=== PATIENT | male | born 1950 | race Caucasian/White ===

== ENCOUNTER 2019-05-23 05:43 | Emergency (ER) | payer BC, MEDICARE ==
[~2019-05-23] VITALS: Ht 185.4 cm; Wt 129.3 kg
[2019-05-23] MEDS ORDERED: FLECAINIDE ACET50 MG PO (05:51)
[2019-05-23] MEDS ORDERED: ASPIRIN325 MG PO (05:52)
== END 2019-05-23 06:45 | disposition home or self-care (01) ==
LOC: ED 05:43
DX: R53.83 Other fatigue (principal); R03.0 Elevated blood-pressure reading, without diagnosis of hypertension; Z88.0 Allergy status to penicillin; Z79.899 Other long term (current) drug therapy; Z79.82 Long term (current) use of aspirin
CPT/HCPCS: 99284

== ENCOUNTER 2021-04-30 10:09 | Inpatient (IN) | payer MEDICARE ==
[~2021-04-30] VITALS: Ht 185.4 cm; Wt 125.3 kg
[~2021-04-30 10:09] MED LIST: ASPIRIN325 MG PO; FLECAINIDE ACET50 MG PO
[2021-04-30] MEDS ORDERED: FLECAINIDE ACE150 MG PO (13:08)
--- NOTE | 2021-04-30 15:19 | NUR ---
PT PLACED ON 8L HIGH FLOW OXYGEN N.C., HE IS SITTING UP EATING REGULAR DIET. HE IS ALERT AND ORIENTED. NOTIFIED OF ADMISSION V/S
[2021-04-30] MEDS ORDERED: MULTI VITAMIN1 EACH PO (15:32)
--- NOTE | 2021-04-30 15:32 | NUR ---
MED REC COMPLETE
--- NOTE | 2021-04-30 15:46 | NUR ---
PT SITTING UP IN BED ALERT AND ORIENTED, CONSUMED 100% OF LUNCH. NOW SITTING UP VISITING.
--- NOTE | 2021-04-30 16:16 | EKG ---
[facility] [address] [facility] [place] [id number] Signed Wide QRS tachycardia with premature supraventricular complexes Left axis deviation Left bundle branch block Abnormal ECG No previous ECGs available Confirmed by ANNA CARLTON MD ([id number]) on 04/30/2021 4:16:19 PM Electronically Signed By: ANNA CARLTON MD 04/30/21 1616 PATIENT NAME: AMBER CID ANALI Electrocardiogram DATE OF : 48 PHYSICIAN: ANNA CARLTON MD REPORT #: [id number] REPORT IS CONFIDENTIAL AND NOT TO BE RELEASED WITHOUT AUTHORIZATION
--- NOTE | 2021-04-30 17:07 | NUR ---
Patient is resting on right side in bed with his call light in reach. Patient is sweaty and RN was notified. BSC, 2PA.
--- NOTE | 2021-04-30 18:36 | NUR ---
PT ADMITTED FROM ED THIS AFTERNOON 1454, HE HAS BEEN DROWSY, HARD TO WAKE. HE IS ON HIGH FLOW OXYGEN 7L. HE ARRIVED ON 7L OXYMASK. HE HAS GOOD APPETITE, HAD DIARRHEA ONCE SINCE ADMISSION, NO NAUSEA. HAS INTERMITTEN FEVER. ONE PERSON TO BEDSIDE COMMODE. DR. CARLTON NOTIFIED OF TACHYCARDIA UP TO 120-130 BPM , THEN BACK TO 110 BPM
--- NOTE | 2021-04-30 22:13 | NUR ---
IN TO GET VITALS, BOOKER EMPTIED, RN AWARE OF LOWER BP, NO FURTHER NEEDS AT THIS TIME
--- NOTE | 2021-04-30 22:51 | NUR ---
IN TO REPLACE TELE LEADS, AND BATTERY, RN COMING TO THE RO ASSESS PTs O2
--- NOTE | 2021-04-30 23:02 | NUR ---
PT SPO2 84% ON 7L HIGH FLOW NC. PT MOVED TO 9L, SPO2 91%. PT GIVEN EDUCATION ON PRONING. PT STATES HE CAN'T PRONE BUT CAN LAY ON HIS SIDE. PT ON CPAP AT HOME BUT DID NOT BRING IT. RT CALLED TO PROVIDED CPAP.
--- NOTE | 2021-05-01 00:28 | NUR ---
PT RESTING IN BED ON HIS RIGHT SIDE. CPAP ON, CPOX 92%. HR AFIB @ 111. CALL LIGHT IN REACH.
--- NOTE | 2021-05-01 02:00 | NUR ---
IN TO ASSIST RN WITH VITALS, WARM BLANKETS PROVIDED, FIXED TELE RL LEAD, PT WILL CALL US LATER WHEN HES READY TO GET UP TO VOID, NO FURTHER NEEDS AT THIS TIME
--- NOTE | 2021-05-01 02:22 | NUR ---
ASSESSMENT COMPLETED. CPOX 98% ON 8L CPAP. LUNGS CLEAR IN UPPER LOBES AND COURSE IN LOWER LOBES. HEART TONES REGULAR, TELE HR SR @ 60. IV WNL. CMS INTACT. ABD SOFT, NONTENDER, BOWEL TONES ACTIVE. PT HAS OCCASSIONAL NONPRODUCTIVE COUGH. PT IS DUE TO VOID, DECLINES TO USE BR AT THIS TIME. NO OTHER NEEDS AT THIS TIME. CALL LIGHT IN REACH.
--- NOTE | 2021-05-01 07:36 | NUR ---
PT ALERT ON CPAP, GAVE ORDER FOR BREAKFAST. NO DISTRESS NOTED, NO OHTER REQUESTS AT THIS TIME.
--- NOTE | 2021-05-01 08:42 | NUR ---
PT SITTING UP IN BED EATING BREAKFAST. HE IS COUGH INTERMITTEN AFTER NEB TREATMENT. HE IS NOW ON HIGH FLOW N.C. 7L. HE IS ALERT AND ORIENTED. ASSESSMENT AND MEDS PASSED.
--- NOTE | 2021-05-01 09:09 | NUR ---
Patient is requesting tooth brustles not tooth picks. RN will be notified. Vitals, I&Os are recorded. Resperations were 30, RN will be notified and patient would like a shower with a shower chair sometime today. Call light is in reach and the last request is more ice water. I will go get that.
--- NOTE | 2021-05-01 09:54 | NUR ---
PT AGREES TO TAKE SHOWER AND SIT UP IN RECLINER TODAY, HE HAS A SEVERE COUGH AFTER NEB THIS AM AND BREAKFAST. TESSLON PHILLIP GIVEN PRN WILL MONITOR. HE HAS CONSUMED 90% OF BREAKFAST.
--- NOTE | 2021-05-01 11:08 | NUR ---
ASSISTED PT UP TO BARTHROOM FOR LOOSE BM AND VOID. PT THEN SHOWERED WITH STAND BY ASSISTANCE OF NURSE. DR CARLTON IN TO ROUND ON PT. OXYGEN PLACED AT 10 NC FOR SHOWER. PT TOLERATED WELL WITH SATURATIONS AT 97%. ONCE IN CHAIR AFTER SHOWER TITRATED OXYGEN TO 7L NC. OXYGEN SATURATION 94% CALL LIGHT AND PERSONAL ITEMS WITHIN REACH. .
--- NOTE | 2021-05-01 11:45 | NUR ---
Spoke orbbie Bowman by phone. He states he lives in [place] with his in a 2 story home. He does not use the basement. He uses a CPAP at with 02. He is unsure how much 02 he uses [facility] for his 02 and CPAP. He asks I call them as he is unsure what he has at home. He describes an 02 concentrator, but also possible a portable concentrator. He states he also has 2 adult kids living at home and they can assist. is currently sick with covid, children recently had and recovered Pt is on 8L with Bipap today.Pt plans on dc to home when medically stable. Denies needs to go home.
--- NOTE | 2021-05-01 12:00 | NUR ---
Called and spoke with RT at [facility]. Updated there is a slight possibility pt may dc between now and next Tuesday. He is unclear on what he has at home. Per RT he has a 5L O2 concentrator and a CPAP. She thinks he may have purchased a portable concentrator on his own. She states these normally produce 3 L 02. Updated he is currently on 8L with Bipap and 7 L when off Bipap. She states they are very low on the 10 L concentrator, but could deliver a second 5l and run both while pt needs. Updated, I am not sure when pt will dc or what his qualifier will show. She thanked me for the call and will let their [place] special client bus driver know. She request all proper paper work be faxed if pt discharges. Updated I will leave a note with instructions on the chart for the nurses.
--- NOTE | 2021-05-01 15:01 | NUR ---
PT CALLED TO REQUEST FOR ASSISTANCE GO TO BATHROOM THEN GET BACK TO BED HE IS COLD SITTING UP IN RECLINER. PT GIVEN TWO WARM BLANKETS WELL. HE VOICED BEING UPSET HE SAID HE CALLED THE NURSES STATION EARILER TO REQUEST ASSISTANCE AND NO ONE CAME. THIS RN TALKED WITH CHARGE NURSE JESUS GUERRERO TO REPORT PT DISCONTENT.
--- NOTE | 2021-05-01 16:14 | NUR ---
Patient is in bed. Vitals, I&Os are complete. Call light is in reach. Ice water will be refilled and there are no other requests at this time.
--- NOTE | 2021-05-01 18:51 | NUR ---
Patient is asking about meds for his heart. He says his heart doctoris very specific about what type of meds he gets. He said he has his own meds for this in his blue bag on top inside his bag. Patient vitals, I&Os are complete. Patient is talking with his on the phone. The RN was notified. The RN said he would get it at (2100 hours) 9pm tonight. The call light is in reach.
--- NOTE | 2021-05-01 19:10 | NUR ---
SHIFT REPORT RECEIVED FROM DOLORES GUERRERO. VIRI @ 5. NO NEEDS AT THIS TIME. CALL LIGHT IN REACH.
--- NOTE | 2021-05-01 21:30 | NUR ---
ASSESSMENT COMPLETED. GCS 15, A&O X4. LUNGS COURSE IN UPPER LOBES AND DIMINISHED IN LOWER LOBES. NC @ 5L, CPOX 95%. HEART TONES REGULAR. ABD SOFT, NONTENDER, BOWEL TONES ACTIVE. CMS INTACT. PT HAS AN OCCASIONAL COUGH WITH SCANT OUTPUT. IV WNL,CDI, FLUSHED WELL. ICE WATER PROVIDED. SCHEDULED MEDS PROVIDED. PRN PAIN MED PROVIDED FOR 4/10 GENERALIZED PAIN. NO OTHER NEEDS. CALL LIGHT IN REACH.
--- NOTE | 2021-05-01 21:30 | NUR ---
IN TO GET VITALS, ICE WATER REFILLED, RT IN FOR NEB TREATMENT, NO FURTHER NEEDS AT THIS TIME
--- NOTE | 2021-05-02 | NUR ---
PT RESTING IN BED, EYES CLOSED. NC @ 5L. CALL LIGHT IN REACH.
--- NOTE | 2021-05-02 03:15 | NUR ---
PT UP TO THE TOILET WITH O2 NC, PT TRYING FOR A BM, UNSUCCESSFUL, 400MLs VOID, PT REQUESTING COUGH MED, RN IN TO PROVIDE, PT BACK TO BED AT THIS TIME, WILL WATCH TV FOR A LITTLE BIT
--- NOTE | 2021-05-02 03:30 | NUR ---
PT REQUESTS PRN COUGH MED, PROVIDED. ASSESSMENT COMPLETED. LUNGS CLEAR IN UPPER LOBES AND COURSE IN THE LOWER LOBES. NC @ 5L, CPOX 96% PT HAS BEEN ON AND OFF CPAP. IV WNL. ICE WATER PROVIDED. NO OTHER NEEDS. CALL LIGHT IN REACH.
--- NOTE | 2021-05-02 06:53 | NUR ---
CHARTED PATIENT IS AND OS, AND VITALS. PROVIDED PATIENT WITH FRESH ICE WATER, TIDIED PATIENT ROOM, AND CALL LIGHT LEFT WITHIN REACH.
--- NOTE | 2021-05-02 07:32 | NUR ---
REPORT RECEIVED FROM YOLANDA EASON. PT RESTING IN BED WATCHING TV. PT DENIES PAIN AND NAUSEA. OXGYEN SATURATION 93% ON 5L O2 BY NC. PT REPORTS HE IS READY FOR BREAKFAST. NO ADDITIONAL REQUESTS OR COMPLAINTS. CALL LIGHT WITHIN REACH. BED RAILS UP.
--- NOTE | 2021-05-02 08:30 | NUR ---
MORNING ASSESSMENT AND MEDICATION DUE. THIS RN TO ROOM. STAND BY ASSIST UP TO CHAIR. PT RELUCATANT STATING HE WANTS TO EAT IN BED. EDUCATION DONE WITH PT REGARDING LYING ON BACK ALL DAY. PT VERBALIZE UNDERSTANDING AND AGREES TO GET UP TO CHAIR. PT DENIES PAIN AND NAUSA. PT ABLE TO WALK AROUND ROOM WITH OXYGEN SATURATIONS MAINTAINING ABOVE 90% ON 5L O2 BY NC. DRESSING OVER IV SITE LOOSE, NEW DRESSING APPLIED PER PROTOCOL. LUNG SOUNDS CLEAR IN UPPER LOBES, VERY DEMINISHED IN BASES. DRY COUGH CONTINUES. PT UPDATED ON PLAN OF CARE AND HOME OXYGEN TRIAL PLANNED FOR TODAY. PT STATES "NO, I DON'T WANT TO GO HOME." WHEN ASKED WHY PT RESPONDS "I'M TOO WEAK." PT ABLE TO DO ADL CARES WITH STAND BY ASSIT AND ABLE TO WALK AROUND ROOM. MEDICATIONS GIVEN. PT EATING BREAKFAST. PT DENIES ADDITIONAL REQUESTS OR COMPLAINTS. CALL LIGHT WITHIN REACH.
--- NOTE | 2021-05-02 10:12 | NUR ---
THIS RN TO ROOM TO CHECK ON PT. PT REMAINS UP TO CHAIR. 93% ON 5L O2 BY NC. PT EDUCATION DONE REGARDING I.S. USE AND PRONING. PT DEMONSTRATES USE OF I.S. REACHING 1750ML. PT REPORTS HE WOULD LIKE TO GET BACK TO BED TO REST. STAND BY ASSIST BACK TO BED. PT DEMONSTRATES UNDERSTANDING OF PRONING, AGREEING TO LYE ON LEFT SIDE. PT DECLINES LYING ON STOMACH AT THIS TIME. PT DENIES PAIN AND NAUSEA. REMDESIVIR STARTED. PT DENIES ADDITIONAL REQUESTS OR COMPLAINTS AT THIS TIME. CALL HAMZAH TUBBS.
--- NOTE | 2021-05-02 11:11 | NUR ---
MD TO BEDSIDE FOR ROUNDS, THIS RN TO ROOM WITH MD. PT RESTING ON LEFT SIDE. AWAKENS TO VOICE AND LIGHT TOUCH. PT STATES HE IS NOT READY TO GO HOME AT THIS TIME HE IS TOO WEAK. OXGYEN SATURATIONS 92-95% ON 5L O2 BY NC. COUGH MEDICAITON GIVEN PER PT REQUEST. PT WEANED TO 4L O2 BY NC AND IS MAINTAINING OXGYEN SATURATIONS ABOVE 90%. PT CONTINES RESTING, NOW ON RIGHT SIDE. DENIES ADDITIONAL REQUESTS OR COMPLAINTS. CALL LIGHT WITHIN REACH.
--- NOTE | 2021-05-02 12:25 | NUR ---
THIS RN TO ROOM TO CHECK ON PT. LUNCH DELIVERED. PT SITTING ON EDGE OF BED. OXYGEN SATURATION GREATER THAN 90% ON 3L. PT WEANED TO 2L O2 BY NC WITH OXGYEN SATURATIONS REMAINING ABOVE. 90%. I.S. USE DEMONSTRATED REACHING 1750 X4. SBA UP TO RESTROOM, PT VOIDS 300ML CONCENTRATED YELLOW URINE. PT AMBULATES BACK TO SITTING ON EDGE OF BED. NO ADDITIONAL REQUESTS OR COMPLAINTS AT THIS TIME. CALL HAMZAH TUBBS.
--- NOTE | 2021-05-02 14:44 | NUR ---
PATIENT SITTING IN CHAIR WATCHING TV. VITALS AND I&O'S CHARTED. CALL LIGHT IN REACH. NO FURTHER NEEDS AT THIS TIME.
--- NOTE | 2021-05-02 14:54 | NUR ---
AFTERNOON ASSESSMENT DUE. PT UP TO CHAIR. PT REPORTS HE HAS BEEN UP IN ROOM AND WALKING ARROUND DIRECTED BY . PT REPORTS BOWEL MOVEMENT AND VOID WITHOUT ISSUE. PT UP TO CHAIR AT THIS TIME. 92% ON 2L O2 BY NC. LUNG SOUNDS CLEAR, DEMINISHED IN BASES. PT DEMONSTRATES USE OF I.S. REACHING 1750ML X5. ADDITONAL EDUCATON DONE WIHT PT REGARDING OXYGEN USE AND PRONING. PT REPORTS HE PLANS TO SHOWER THIS AFTERNOON AND THEN REST. PT DENIES PAIN AND NAUSEA. PT REPORTS STRENGTH IS IMPROVING. PT TALKING AND TELLING STORIES, APPEARS IN GOOD SPIRITS. NO ADDITIONAL REQUESTS OR COMPLAINTS. CALL LIGHT WITHIN REACH.
--- NOTE | 2021-05-02 16:00 | NUR ---
STAND BY ASSIST UP TO SHOWER. PT STEADY ON FEET. PT INDEPENDANT IN SHOWER. LINENS CHANGED. PT DEMONSTRATES USE OF CALL LIGHT.
--- NOTE | 2021-05-02 16:42 | NUR ---
PT FINISHED WITH SHOWER. PT RESTING IN BED ON LEFT SIDE WITH EYES CLOSED. ROOM CLEANED FOR PT. PT AWAKENS TO MOVEMENT IN ROOM. PT DENIES PAIN AND NAUSEA. O2 SATURATONS 92% ON 2L O2 BY NC. PT REPORTS THE SHOWER FELT "REALLY GOOD." PT DENIES FATIGUE WITH SHOWER AND REPORTS HE HAD "GOOD ENERGY" DURING SHOWER. PT DENIES REQUESTS OR COMPLAINTS. DINNER ORDER PLACED. CALL LIGHT WITHIN REACH.
--- NOTE | 2021-05-02 17:40 | NUR ---
PT HERE FOR COVID RELATED PNEUMONIA. PT INDEPENDANT IN ROOM THIS SHIFT, STEADY ON FEET, SHOWERED INDEPENDANTLY. PT TOELRATING REGULAR DIET WITH GOOD APPITITE. PT WEANED TO 2L O2 BY NC WITH OXYGEN SATURATIONS ABOVE 90%. LUNG SOUNDS CLEAR BUT DEMINISHED IN BASES. PT USING CPAP AT NIGHT. REMDESIVIR AND DECADRON GIVEN. PRN COUGH MEDICATION GIVEN. PT IN GOOD SPIRTIS THIS SHIFT. PT VOIDING QUANTITY SUFFICIENT. BOWEL MOVEMENT THIS SHIFT. PT USES CALL LIGHT APPROPRIATLY AND MAKES NEEDS KNOWN.
--- NOTE | 2021-05-02 18:15 | NUR ---
THIS RN TO ROOM TO CHECK ON PT. PT SITTING ON EDGE OF BED, FINISHED WITH DINNER. OXGYEN SATURATION 93% ON 2L O2 BY NC. PT DENIES PAIN AND NAUSEA, TALKIGN WITH ON PHONE. PTS , NEVIN, UPDATED BY THIS RN. NEVIN VERBALIZES UNDERSTANDING OF PLAN OF CARE AND STATES HER QUESTIONS HAVE BEEN ANSWERED. REPORTS MILD SORE THROAT "IS STARTING FROM TIME TO TIME." ICE CHIPS PROVIDED. PT DENIES ADDITIONAL REQUESTS OR COMPLAINTS. CALL LIGHT WITHIN REACH. PT REMAINS SITTING ON EDGE OF BED.
--- NOTE | 2021-05-02 18:50 | NUR ---
SHOWER ENCLOSURE INSTALLER IN ROOM TO DO VITALS AND I&O'S. PATIENT SITTING UP IN BED. CALL LIGHT IN REACH. NO FURTHER NEEDS AT THIS TIME.
--- NOTE | 2021-05-02 19:30 | NUR ---
SHIFT REPORT FROM NURSE WAGONER.PT IS LAYING IN BED LEFT LATERAL, EYES CLOSED, APPEARS TO BE SLEEPING. EVEN RR NOTED. CALL LIGHT WITHIN REACH.
--- NOTE | 2021-05-02 20:30 | NUR ---
IN TO GET VITALS, ICE WATER FILLED, PT INDEPENTITLY UP TO THE TOILET RECENTLY, PT REQUESTING HIS EVENING MEDS AND SOMETHING FOR HIS COUGH, NO FURTHER NEEDS AT THIS TIME
--- NOTE | 2021-05-02 21:49 | NUR ---
IN ROOM FOR EVENING MEDS AND ASSESSMENT. PT IS SLEEPING THIS NURSE ENTERS ROOM AND TAKES GENTLE SHAKING TO WAKE. PT REQUESTS PRN TESSALON PERLES AND TYLENOL FOR 4/10 NECK PAIN "FROM SLEEPING ON MY SIDE". LUNG SOUNDS CLEAR, DIM IN BASES. SPO2 97-99% ON 2L NC. DISCUSSED WITH PT WEARING CPAP AT NIGHT. PT WILL JUST USE NC TONIGHT IT IS UNCOMFORTABLE TO PRONE WITH CPAP ON. PT IS PROUD THAT HE IS GETTING BETTER AND MOVING INDEPENDENTLY IN ROOM. SNACK PROVIDED, FRESH WATER GIVEN. CALL LIGHT WITHIN REACH. NO FURTHER NEEDS AT THIS TIME.
--- NOTE | 2021-05-03 01:18 | NUR ---
CHECKED ON PT; PT APPEARS TO BE SLEEPING WITH EYES CLOSED, EVEN RR NOTED. PT IS LAYING RT LATERAL. SPO2 ON MONITOR READS 97% ON 2LNC. CALL LIGHT WIHTIN REACH
--- NOTE | 2021-05-03 02:06 | NUR ---
in room to check on pt. urine emptied from urine hat, spo2 monitor reapplied to finger. pt slept through activity in the room. no further needs at this time. call light on pillow beside pt
--- NOTE | 2021-05-03 03:13 | NUR ---
IN ROOM TO REATTACH SPO2 MONITOR. PT SLEPT THROUGH INTERVENTION. CALL LIGHT WITHIN REACH
--- NOTE | 2021-05-03 05:50 | NUR ---
IN TO GET VITALS, PT UP TO VOID AT THIS TIME, PT REQUESTING TO WEIGHT SELF, PROVIDED, PT LIKES TO CHAT, PROVIDED A LISTENING EAR, ICE WATER FILLED, NO FURTHER NEEDS AT THIS TIME
--- NOTE | 2021-05-03 05:50 | NUR ---
IN ROOM FOR MORNING ASSESSMENT. PER TELE CPOX MONITOR, HR HAS BEEN TACHYCARDIC RUNNING AROUND 115 SINCE ABOUT 0330. HEART RHYTHYM REGULAR BY AUSCULTATION, APICAL PULSE 120. PT REPORTS NOT FEELING ANY DIFFERENCE WITH THE TACHYCARDIA. MESSAGE LEFT FOR DR BURRIS TO UPDATE. CALL LIGHT WITHIN REACH. BEATRIZ JOSEPH IN ROOM WITH PT THIS NURSE LEFT ROOM.
--- NOTE | 2021-05-03 07:34 | NUR ---
REPORT RECEIVED FROM YOLANDA ORTIZ. PT RESTING ON RIGHT SIDE WITH EYES CLOSED. TACHYCARDIA NOTED, HR OF 124 AT THIS TIME, DIANA STATES MESSAGE WAS ALREADY SENT TO . RESPIRATIONS EVEN AND UNLABORED. OXYGEN SATURATIONS OF 91% ON 2L O2 BY NC. BED RAILS UP. CALL LIGHT WITHIN RECH. PT ALLOWED TO REST AT THIS TIME.
--- NOTE | 2021-05-03 08:44 | NUR ---
MORNING ASSESSMENT AND MEDICATION DUE. PT SITTING UP ON EDGE OF BED, AWAITING BREAKFAST. PT REPORTS HE PLACED AN ORDER. PT DENIES PAIN AND NAUSEA. PT ALERT AND ORIENTED TO ALL. LUNG SOUNDS CLEAR IN ALL LOBES. RR = 20, OXGYEN SATURATION 95% ON 2L O2 BY NC. ROOM AIR TRIAL ATTEMPTED. PT DROPS TO 88% ON ROOM AIR. PT PLACED BACK TO 1L O2 BY NC WITH OXGYEN SATURATIONS 90-92%. REPIRATIONS EVEN AND UNALBORED. PT TALKING AND TELLING STORIES. HEART RATE CONTINUES TO BE ELEVATED 110-120'S. IRREGULAR TONES NOTED. MEDICATION GIVEN. PT REPORTS COUGH CONTINUES AND REQUESTS COUGH MEDICATION (SEE MAR FOR MEDICATION GIVEN). PT REPORTS HE FEELS READY TO GO HOME BUT IS STILL CONCERNED ABOUT "KEEPING MY STRENGTH UP." PT REPORTS HE HAS BEEN ABLE TO GO TO THE BATHROOM ON HIS OWN THROUGH THE NIGHT. PLANS TO SHOWER LATER THIS MORNING. NO ADDITIONAL REQUESTS OR COMPLAINTS. PT EATING BRAEKFAST. CALL LIGHT WITHIN REACH.
--- NOTE | 2021-05-03 10:35 | NUR ---
PT FINSHED WITH SHOWER. CALL LIGHT ON. THIS RN TO ROOM. PULSE OX PLACE BACK ON PTS FINGER. 96% ON 1L O2 BY NC. PT WEANED TO ROOM AIR WITH OXGYEN SATUATIONS REMAINING ABOVE 90%. HEART RATE CONTINUES TO BE IRREGULAR, RADIAL PULSE OF 80'S. PT DEMONSTRATES USE I.S. REACHING 1750ML X5. PT DENIES ADDITIONAL REQEUSTS OR COMPLAINTS. SITTING ON EDGE OF BED. CALL LIGHT WITHIN REACH.
--- NOTE | 2021-05-03 11:40 | NUR ---
MD TO BEDSIDE FOR ROUNDS. PT IRREGULAR RAPID HEART RATE CONTINUES. PT PLACED ON TELEMETRY MONITORING PER MD ORDER. SINUS TACHYCARDIA WITH WIDE QRS SEGMENTS NOTED. PT ASYMPTOMATIC, DENIES DIZZINESS, DIAPHROESIS, OR FEELINGS OF PALPITATIONS. LUNCH ORDERED. PT VERBALIZES UNDERSTANDING OF PLAN OF CARE. NO ADDITIONAL REQUESTS OR COMPLAINTS. CALL LIGHT WITHIN REACH.
--- NOTE | 2021-05-03 11:58 | NUR ---
THIS RN TO ROOM TO CHECK ON PT. PT REMAINS TACHYCARDIC WITH HR OF 125, WIDE BUNDLE BRANCH BLOCK CONTINUES. PT STATES HE WAS PLACED "ON SOME SLOWING MEDICATION" A WHILE AGO WHICH DROPPED HIS HEART RATE "WAY TOO MUCH." PT UNSURE OF WHICH MEDICAITON AND STATES TO CALL HIS . CARLOS STATES PT HAS BEEN PLACED ON BOTH DILTIAZEM AND METOPROLOL BOTH OF WHICH DROPPED HIS HERT RATE INTO THE 30'S. CARLOS UNSURE OF DOES OF MEDICATIONS BUT STATES "THEY TRIED TO ADJUST HIS DOSE AND THEY COULDN'T GET IT LOW ENOUGH." CARLOS STATES "HE USUALLY GOES INTO THIS WHEN HE IS DEHYDRATED." PTS STATES TO ENCOURAGE FLUIDS. PT ENCORUAGED TO DRINK A FEW GLASSES OF WATER, WATER PROVIDED. UPDATED. CALL LIGHT WITHIN REACH. BED RAILS UP.
[2021-05-03] MEDS ORDERED: DEXAMETHASONE6 MG PO (13:34)
--- NOTE | 2021-05-03 14:20 | NUR ---
THIS RN TO ROOM TO CHECK ON PT. PT SITTING UP ON EDGE OF BED. HEART RATES OF 120'S. PT REPORTS HE IS READY FOR DISCHARGE AND STATES HE CONFIRMS THAT HE DOES NOT WANT TO SART MEDICATIONS HERE AT THE HOSPITAL AND PREFERS TO FOLLOW UP WITH DR. BRUNNER AN OUTPATIENT. VITAL SIGNS STABLE. OXGYEN SATURATION 94% ON ROOM AIR. PT DENIES ADDITIONAL REQUESTS OR COMPLAINTS. STATES HIS FAMILY WILL ARRIVE IN ABOUT 1.5 HOURS. CALL LIGHT WITHIN REACH. BED RAILS UP.
--- NOTE | 2021-05-03 15:45 | NUR ---
PT READY FOR DISCHARGE. DISCHARGE DELAYED RELATED TO FILLING DEXAMETHASONE RX. THIS RN TO ROOM. PT UP TO RESTROOM, INDEPENDANT IN ROOM. PT DENIES PAIN AND NAUSEA. PT ALERT AND ORIENTED AND SPOT CHECK OF O2 SATURATIONS SHOW 94% ON ROOM AIR WITH HEART RATE OF 120. DISCHARGE INSTRUCTIONS REVIEWED WITH PT INCLUDING QUARENTEENING RELATED TO COVID 19, MEDICATIONS, AND FOLLOW UP APPOINTMENTS. PT VERBALIZES UNDERSTANDING OF ALL INSTRUCTIONS AND STATES HIS QUESTIONS HAVE BEEN ANSWERED. PT TRANSFERES SELF TO WHEELCHAIR AND IS WHEELED FROM MED/SURG BY THIS RN. PT DENIES ADDITIONAL REQUESTS OR CONCERNS.
== END 2021-05-03 15:45 | disposition home or self-care (01) | DRG 177 ==
LOC: ED 10:09 → MS 12:44
PROVIDERS: ADMIT Internal Medicine; ATTEND Internal Medicine
PROC: 8E0ZXY6 Isolation (ICD-10-PCS; principal; 2021-04-30)
PROC: 3E0333Z Introduction of Anti-inflammatory into Peripheral Vein, Percutaneous Approach (ICD-10-PCS; 2021-04-30)
PROC: XW033E5 Introduction of Remdesivir Anti-infective into Peripheral Vein, Percutaneous Approach, New Technology Group 5 (ICD-10-PCS; 2021-04-30)
PROC: 5A0935A Assistance with Respiratory Ventilation, Less than 24 Consecutive Hours, High Flow/Velocity Cannula (ICD-10-PCS; 2021-04-30)
PROC: 5A09357 Assistance with Respiratory Ventilation, Less than 24 Consecutive Hours, Continuous Positive Airway Pressure (ICD-10-PCS; 2021-05-01)
DX: U07.1 COVID-19 (principal); J96.01 Acute respiratory failure with hypoxia; J12.82 Pneumonia due to coronavirus disease 2019; J44.0 Chronic obstructive pulmonary disease with (acute) lower respiratory infection; I48.0 Paroxysmal atrial fibrillation; Z98.890 Other specified postprocedural states; Z88.0 Allergy status to penicillin; Z88.8 Allergy status to other drugs, medicaments and biological substances; Z79.82 Long term (current) use of aspirin; Z79.899 Other long term (current) drug therapy
CPT/HCPCS: 71045; 80053; 83735; 84484; 85025; 93005; 93010; 94640; 94660; 94760; 94761; 96374; 99285-25; A9270; C9803; J1100; J1650; J7030; J7050; U0003